=== PATIENT | male | born 1980 | race Caucasian/White ===

== ENCOUNTER 2017-05-09 14:28 | Emergency (ER) | payer OTHER ==
[2017-05-09 14:33] VITALS: BP 143/93
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
== END 2017-05-09 15:53 | disposition home or self-care (01) ==
LOC: ER 14:41
DX: S62.356A Nondisplaced fracture of shaft of fifth metacarpal bone, right hand, initial encounter for closed fracture (principal); X58.XXXA Exposure to other specified factors, initial encounter; Y92.9 Unspecified place or not applicable
CPT/HCPCS: 29125; 73130; 99282